=== PATIENT | male | born 1935 | race Caucasian/White ===

== ENCOUNTER 2016-06-14 08:30 | Outpatient (CLI) | payer MEDICARE ==
[2016-06-14 09:32] LABS: #Basophils 0.1 thou/uL (0.0-0.2); #Eosinphils 0.1 thou/uL (0.0-0.7); #Lymphocytes 1.2 thou/uL (1.20-3.40); #Monocytes 0.4 thou/uL (0.11-0.59); #Neutrophils 6.7 thou/uL (1.40-6.50); %Basophils 0.8 % (0.0-1.0); %Eosinophils 1.4 % (0.0-10.0); %Lymphocytes 14.5 % (21.0-51.0); %Monocytes 4.5 % (0.0-10.0); %Neutrophils 78.7 % (42.0-75.0); Anisocytosis SLIGHT = 6-15 cells (100X) (0-5/hpf); Hemoglobin 14.1 g/dL (14.0-18.0); MDiff Complete? YES; Mean Corpuscular HGB CONC 34.8 g/dL (32.0-36.0); Mean Corpuscular Hemoglobin 34.4 pg (27.0-31.0); Mean Corpuscular Volume 98.8 fl (80.0-94.0); Mean Platelet Volume 8.5 fL (7.4-10.4); Platelet Count 223 thou/uL (130-400); RBC Distribution Width 11.6 % (11.5-14.5); Red Blood Cell (RBC) Count 4.09 mill/uL (4.70-6.10); White Blood Cell (WBC) Count 8.5 thou/uL (4.8-10.8)
[2016-06-14 09:44] LABS: Hemoglobin A1c 7.1 % (4.0-6.0)
[2016-06-14 10:29] LABS: ALT (SGPT) 8 U/L (0-55); AST (SGOT) 15 U/L (5-34); Albumin 4.1 g/dL (3.4-4.8); Alkaline Phosphatase 49 U/L (40-150); Anion Gap 17 mmol/L (10-20); BUN (Urea Nitrogen) 20 mg/dL (8.4-25.7); Bilirubin, Total 0.9 mg/dL (0.2-1.2); Calc. Creatinine Clearance 0 mL/min (70-130); Calcium 9.2 mg/dL (7.8-10.44); Carbon Dioxide 24 mmol/L (23-31); Chloride 102 mmol/L (98-107); Estimated GFR-MDRD 65; Globulin 2.1 g/dL (2.4-3.5); Glucose 206 mg/dL (83-110); Protein, Total 6.2 g/dL (5.8-8.1); Sodium 138 mmol/L (136-145)
[2016-06-14 17:24] LABS: Iron 103 ug/dL (65-175)
== END 2016-06-14 08:31 | disposition home or self-care (01) ==
LOC: MADLABBHPM 08:30
PROVIDERS: ATTEND Family Medicine
DX: D64.9 Anemia, unspecified (principal); E11.9 Type 2 diabetes mellitus without complications
CPT/HCPCS: 36415; 80053; 82728; 83036; 83540; 85025

== ENCOUNTER 2016-08-27 10:58 | Emergency (ER) | payer MEDICARE ==
[~2016-08-27 10:58] MED LIST: Sodium Chloride Irrig Solution 250 ML BOT ONE
[2016-08-27] MEDS ORDERED: HYDROcodone/Acetaminophen 10/325 mg Tablet ONE (12:14)
[2016-08-27] MEDS ORDERED: Triple Antibiotic Oint 1 GM Packet ONE (12:15)
[2016-08-27] MEDS ORDERED: Sulfameth/Trimethoprim DS 800-160mg TAB ONE (12:15)
== END 2016-08-27 12:26 | disposition home or self-care (01) ==
LOC: MADERS 10:58
DX: S61.213A Laceration without foreign body of left middle finger without damage to nail, initial encounter (principal); E11.9 Type 2 diabetes mellitus without complications; E78.5 Hyperlipidemia, unspecified; J44.9 Chronic obstructive pulmonary disease, unspecified; I10 Essential (primary) hypertension; Z79.899 Other long term (current) drug therapy; W45.8XXA Other foreign body or object entering through skin, initial encounter
CPT/HCPCS: 99283

== ENCOUNTER 2016-12-09 08:33 | Outpatient (CLI) | payer MEDICARE ==
[2016-12-09 09:08] LABS: Hemoglobin A1c 7.4 % (4.0-6.0)
[2016-12-09 09:09] LABS: #Basophils 0.1 thou/uL (0.0-0.2); #Eosinphils 0.1 thou/uL (0.0-0.7); #Lymphocytes 1.3 thou/uL (1.20-3.40); #Monocytes 0.4 thou/uL (0.11-0.59); #Neutrophils 6.7 thou/uL (1.40-6.50); %Basophils 0.7 % (0.0-1.0); %Monocytes 4.7 % (0.0-10.0); %Neutrophils 78.6 % (42.0-75.0); Hemoglobin 13.1 g/dL (14.0-18.0); Mean Corpuscular HGB CONC 33.5 g/dL (32.0-36.0); Mean Corpuscular Hemoglobin 33.5 pg (27.0-31.0); Mean Corpuscular Volume 100.1 fl (80.0-94.0); Mean Platelet Volume 8.4 fL (7.4-10.4); Platelet Count 219 thou/uL (130-400); RBC Distribution Width 11.6 % (11.5-14.5); Red Blood Cell (RBC) Count 3.92 mill/uL (4.70-6.10); White Blood Cell (WBC) Count 8.5 thou/uL (4.8-10.8)
[2016-12-09 10:07] LABS: ALT (SGPT) 7 U/L (8-55); AST (SGOT) 15 U/L (5-34); Albumin 3.8 g/dL (3.4-4.8); Alkaline Phosphatase 48 U/L (40-150); Anion Gap 16 mmol/L (10-20); BUN (Urea Nitrogen) 22 mg/dL (8.4-25.7); Bilirubin, Total 0.6 mg/dL (0.2-1.2); Calc. Creatinine Clearance 0 mL/min (70-130); Calcium 8.8 mg/dL (7.8-10.44); Carbon Dioxide 21 mmol/L (23-31); Cardiac Risk 2.9 (Less than 4.5); Chloride 104 mmol/L (98-107); Cholesterol 164 mg/dl (< 200 Desired); Estimated GFR-MDRD 61; Globulin 2.3 g/dL (2.4-3.5); Glucose 195 mg/dL (83-110); HDL Cholesterol 57 mg/dL (>60 Neg Risk); LDL Cholesterol, Calculated 92 mg/dL; Potassium 5.3 mmol/L (3.5-5.1); Protein, Total 6.1 g/dL (5.8-8.1); Sodium 136 mmol/L (136-145); Triglycerides 76 mg/dL (Less than 150)
[2016-12-09 17:13] LABS: Creatinine, Urine 128.74 mg/dL (63-166); Microalbumin Urine 1.4 mg/dL (0.5-50.0); Microalbumin/Creat Ratio 10.9 mg/g (Less than 30)
[2016-12-09 17:37] LABS: Folate (Folic Acid) 13.9 ng/mL (7.0-31.4)
== END 2016-12-09 08:34 | disposition home or self-care (01) ==
LOC: MADLABBHPM 08:33
PROVIDERS: ATTEND Family Medicine
DX: D75.89 Other specified diseases of blood and blood-forming organs (principal); E11.9 Type 2 diabetes mellitus without complications
CPT/HCPCS: 36415; 80053; 80061; 82043; 82607; 82746; 83036; 84443; 85025

== ENCOUNTER 2017-06-13 12:37 | Outpatient (CLI) | payer MEDICARE ==
--- NOTE | 2017-06-13 13:38 | RAD ---
PA AND LATERAL CHEST RADIOGRAPH: Date: 06-13-17 History: COPD with acute lower respiratory infection. Comparison: 10-08-15 FINDINGS: The cardiac silhouette and pulmonary vasculature are within normal limits. Linear densities at the ri t lung base have resolved, likely related to resolution of atelectasis. Lungs are clear on today's exam. There is a mild compression fracture involving the superior endplate of the L2 vertebral body w hich the exact age is indeterminate. Degenerative changes are seen in the spine. IMPRESSION: 1. No acute cardiopulmonary process. 2. Mild compression fracture of the superior endplate L2 vertebral body which the exact age is indete rminate. POS: [facility]
== END 2017-06-13 12:38 | disposition home or self-care (01) ==
LOC: MADRAD 12:37
PROVIDERS: ATTEND Family Medicine
DX: J44.0 Chronic obstructive pulmonary disease with (acute) lower respiratory infection (principal); S32.029D Unspecified fracture of second lumbar vertebra, subsequent encounter for fracture with routine healing
CPT/HCPCS: 71046

== ENCOUNTER 2018-08-09 09:58 | Outpatient (CLI) | payer MEDICARE ==
[2018-08-09 10:43] LABS: RBC/HPF 0-3 HPF (0-3)
[2018-08-09 10:44] LABS: Bacteria/HPF Rare-Few HPF (None Seen)
--- NOTE | 2018-08-09 10:59 | RAD ---
TWO VIEWS CHEST: Comparison: 06-13-17 History: COPD, acute bronchitis. FINDINGS: Two views of the chest show normal sized cardiomediastinal silhouette. There is no evidence of consol idation, mass, or pleural effusion. The bones are unremarkable. IMPRESSION: No evidence of acute cardiopulmonary disease. POS: [facility]
--- NOTE | 2018-08-09 12:44 | RAD ---
RIGHT FOOT THREE VIEWS: HISTORY: Right toe swelling secondary to abscess of the great toe. COMPARISON: None. FINDINGS: Three views of the right foot show no evidence of acute fracture of dislocation. Soft tissue swellin g of the great toe is seen. No obvious osseous erosions are present. IMPRESSION: No evidence of acute osseous abnormality. POS: [facility]
== END 2018-08-09 09:59 | disposition home or self-care (01) ==
LOC: MADLABBHPM 09:58
PROVIDERS: ATTEND Family Medicine
DX: J20.9 Acute bronchitis, unspecified (principal); J44.0 Chronic obstructive pulmonary disease with (acute) lower respiratory infection; L02.611 Cutaneous abscess of right foot; M79.89 Other specified soft tissue disorders; R30.0 Dysuria
CPT/HCPCS: 71046; 81015; 87077; 87086; 87186

== ENCOUNTER 2021-12-10 15:07 | Emergency (ER) | payer MEDICARE, OTHER | END 2021-12-10 16:13 | disposition home or self-care (01) | LOC: MADERS 15:07 | DX: R19.09 Other intra-abdominal and pelvic swelling, mass and lump (principal); E11.9 Type 2 diabetes mellitus without complications; I10 Essential (primary) hypertension; Z79.84 Long term (current) use of oral hypoglycemic drugs; Z79.899 Other long term (current) drug therapy | CPT/HCPCS: 99283 ==

== ENCOUNTER 2022-08-13 14:45 | Emergency (ER) | payer MEDICARE, OTHER ==
[2022-08-13 16:09] LABS: #Monocytes 0.5 thou/uL (0.11-0.59); #Neutrophils 11.2 thou/uL (1.40-6.50); %Basophils 0.2 % (0.0-1.0); %Eosinophils 0.1 % (0.0-10.0); %Lymphocytes 8.2 % (21.0-51.0); %Monocytes 3.7 % (0.0-10.0); %Neutrophils 87.9 % (42.0-75.0); Hemoglobin 10.9 g/dL (14.0-18.0); Mean Corpuscular HGB CONC 33.7 g/dL (32.0-36.0); Mean Corpuscular Volume 91.9 fl (78.0-98.0); Mean Platelet Volume 6.8 fL (7.4-10.4); Platelet Count 233 10x3/uL (130-400); RBC Distribution Width 12.1 % (11.5-14.5); White Blood Cell (WBC) Count 12.7 10x3/uL (4.8-10.8)
[2022-08-13 16:26] LABS: ALT (SGPT) Less than 7 U/L (8-55); AST (SGOT) 37 U/L (5-34); Albumin 3.8 g/dL (3.4-4.8); Alkaline Phosphatase 83 U/L (40-110); Anion Gap 15 mmol/L (10-20); BUN (Urea Nitrogen) 31 mg/dL (8.4-25.7); Bilirubin, Total 0.7 mg/dL (0.2-1.2); Calc. Creatinine Clearance 0 mL/min (70-130); Calcium 8.8 mg/dL (7.8-10.44); Carbon Dioxide 26 mmol/L (23-31); Chloride 94 mmol/L (98-107); Estimated GFR 61; Glucose 315 mg/dL (83-110); Potassium 4.6 mmol/L (3.5-5.1); Protein, Total 6.8 g/dL (5.8-8.1); Sodium 130 mmol/L (136-145)
[2022-08-13 16:43] LABS: CKMB 4.1 ng/mL (0-6.6)
[2022-08-13] MEDS ORDERED: Albuterol 2.5 MG/0.5 ML NEB ONE (17:22)
[2022-08-13] MEDS ORDERED: methylPREDNISolone Sod Succ/PF 125 MG/2 ML VIAL ONE (17:29)
[2022-08-13] MEDS ORDERED: guaiFENesin/Codeine Phosphate 100 mg/10 mg 5 ml UD Cup ONE ×2 (17:29)
[2022-08-13 17:54] LABS: CKMB 4.1 ng/mL (0-6.6)
[2022-08-13] MEDS ORDERED: Ondansetron PF 4 MG/2 ML Vial ONE (17:56)
[2022-08-13] MEDS ORDERED: Sodium Chloride 0.9% 1,000 ML ONE (17:56)
[2022-08-13] MEDS ORDERED: Aspirin Chewable 81 MG TAB ONE (17:59)
[2022-08-13 19:00] LABS: SARS-CoV-2 NAA Rapid Test Not Detected (NotDetected)
== END 2022-08-13 20:54 | disposition short-term general hospital (02) ==
LOC: MADERS 14:45
DX: J18.9 Pneumonia, unspecified organism (principal); E11.9 Type 2 diabetes mellitus without complications; E78.5 Hyperlipidemia, unspecified; I10 Essential (primary) hypertension; J44.9 Chronic obstructive pulmonary disease, unspecified; R77.8 Other specified abnormalities of plasma proteins; Z20.822 Contact with and (suspected) exposure to COVID-19; Z79.899 Other long term (current) drug therapy
CPT/HCPCS: 71045; 80053; 82553; 84484; 85025; 87040; 93005; 96365; 96366; 96372; 96375; J1650; J1956; J2405; J2930; J7050; J7611; U0002